=== PATIENT | female | born 1950 | race Caucasian/White ===

== ENCOUNTER 2018-04-23 19:34 | Emergency (ER) | payer MEDICARE, OTHER, SELFPAY ==
--- NOTE | 2018-04-23 19:37 | ED.FALL ---
HPI - Fall <Michelle Quevedo PA-C - Last Filed: 04/23/18 22:08> General Chief Complaint: Fall Stated Complaint: FELL/HIT FACE Time Seen by Provider: 04/23/18 19:37 Source: patient Mode of arrival: ambulatory Limitations: no limitations History of Present Illness HPI Narrative: This 67 year old female slipped on wet pavement about an hour ago and fell onto her hands, knees, and the right side of her face. She denies any LOC or neck pain, and states that she fell forwards. She states that she did get up right away, her knees are a little sore but no difficulty walking. She states that her hands and wrists are somewhat sore but not having difficulty moving them. She has swelling around her right cheek and eye area and bleeding, so came here for evaluation. She states that her vision is normal with her glasses. She is not having any trouble breathing through her nose, opening or closing her mouth. She has no numbness in her face, but feels like the muscles in her right cheek are moving on their own. She states that her tetanus vaccine is up-to-date. Denies any other injury Related Data Previous Rx's Medication Instructions Recorded hydrocodone-acetaminophen [[place]] 1 tab PO Q4-6H PRN #7 tab 04/23/18 Allergies Allergy/AdvReac Type Severity Reaction Status Date / Time belladonna alkaloids Allergy Verified 04/23/18 19:44 Review of Systems <Michelle Quevedo PA-C - Last Filed: 04/23/18 22:08> Review of Systems All systems reviewed & are unremarkable except as noted in HPI and below Exam <Michelle Quevedo PA-C - Last Filed: 04/23/18 22:08> Narrative Exam Narrative: GENERAL APPEARANCE: Patient sitting comfortably, in no distress. HEAD: No scalp abnormality. Marked edema and ecchymoses over the right cheek and maxilla, and ecchymoses of the right periorbital area. Tender over the cheek and orbital bones, no clear palpable deformity EYES: PERRL, EOMI. EARS: Normal auditory canals, TMS intact with normal light reflexes. NOSE: Nares patent ORAL CAVITY: Normal oropharynx. THROAT: Clear. NECK/THYROID: Neck supple, full range of motion LUNGS: Clear to auscultation bilaterally, no cough on exam. HEART: RRR without murmur, nl S1, S2, no S3 or S4. DERMATOLOGIC: There are 2 shallow (1 mm depth) lacerations just lateral to the right brow line, 1 and 1.2 cm in length, no gap in either, not actively bleeding. Facial ecchymoses as described above. There are also ecchymoses on both hands as well as the posterior right forearm MUSCULOSKELETAL: Able to fully open and close the jaw without tenderness. Full range of motion of the hands and wrists bilaterally without point tenderness aside from over the left hand snuffbox. Bank Accountant strength is intact in the hands. Mild tenderness over both knees, full active range of motion bilaterally, able to bear full weight NEUROLOGIC: Patient is alert and oriented with intact speech and coordination [address] [address] XRay Report Signed Patient: Rosa Morales MR#: [id number] : 08/11/2002 Acct:[id number] Age/Sex: 15 / F Date of Service: 04/23/18 Loc: ED Initial Vital Signs Initial Vital Signs: Vital Signs Temperature 98.2 F 04/23/18 19:44 Pulse Rate 98 H 04/23/18 19:44 Respiratory Rate 17 04/23/18 19:44 Blood Pressure 148/100 H 04/23/18 19:44 Pulse Oximetry 98 04/23/18 19:44 <Santiago Neumann DO - Last Filed: 04/23/18 23:24> Initial Vital Signs Initial Vital Signs: Vital Signs Temperature 98.2 F 04/23/18 19:44 Pulse Rate 98 H 04/23/18 19:44 Respiratory Rate 17 04/23/18 19:44 Blood Pressure 148/100 H 04/23/18 19:44 Pulse Oximetry 98 04/23/18 19:44 Course <Michelle Quevedo PA-C - Last Filed: 04/23/18 22:08> Orders Ordered: ED Orders 04/23/18 19:51 CT facial bones wo con Stat XR hand LT min 3V Stat Discontinued Medications Hydrocodone Bitart/Acetaminophen (Vicodin Prepack) 1 bottle MISC SEEINSTR ONE Stop: 04/23/18 21:03 Last Admin: 04/23/18 21:12 Dose: 1 bottle Ibuprofen (Advil) 800 mg PO NOW ONE Stop: 04/23/18 19:52 Last Admin: 04/23/18 19:53 Dose: 800 mg Vital Signs - 8 hr 04/23/18 19:44 04/23/18 20:01 04/23/18 21:13 Temperature 98.2 F 98.2 F Pulse Rate 98 H 98 H 83 Respiratory Rate 17 17 12 Blood Pressure 148/100 H 148/100 H Blood Pressure [Right Arm] 133/88 Pulse Oximetry 98 98 96 <Santiago Neumann DO - Last Filed: 04/23/18 23:24> Orders Ordered: ED Orders 04/23/18 19:51 CT facial bones wo con Stat XR hand LT min 3V Stat Discontinued Medications Hydrocodone Bitart/Acetaminophen (Vicodin Prepack) 1 bottle MISC SEEINSTR ONE Stop: 04/23/18 21:03 Last Admin: 04/23/18 21:12 Dose: 1 bottle Ibuprofen (Advil) 800 mg PO NOW ONE Stop: 04/23/18 19:52 Last Admin: 04/23/18 19:53 Dose: 800 mg Vital Signs - 8 hr 04/23/18 19:44 04/23/18 20:01 04/23/18 21:13 Temperature 98.2 F 98.2 F Pulse Rate 98 H 98 H 83 Respiratory Rate 17 17 12 Blood Pressure 148/100 H 148/100 H Blood Pressure [Right Arm] 133/88 Pulse Oximetry 98 98 96 MDM - Fall <Michelle Quevedo PA-C - Last Filed: 04/23/18 22:08> Imaging Data hand: Radiologist's impression: View Report History [address] [address] XRay Report Signed Patient: Meghan Hough MR#: [id number] : 1950 Acct:[id number] Age/Sex: 67 / F Date of Service: 04/23/18 Loc: ED Accession Number: [id number] Procedure: XR hand LT min 3V Ordering Provider: Michelle Quevedo P.A-C PROCEDURE: XR HAND LT MIN 3V INDICATIONS: fall, snuff box tenderness TECHNIQUE: 3 views of the hand(s) acquired. COMPARISON: None. FINDINGS: Bones: No fractures or dislocations. Carpal bones are normally aligned. No suspicious bony lesions. Diffuse osteopenia. First CMC and triscaphe joint degeneration punctate density projecting in the distal soft tissues of the index finger. Incidental ulnar minus variance. Soft tissues: No suspicious soft tissue calcifications. IMPRESSION: No fracture Dictated by: Sushil Nunez M.D. on 04/23/2018 at 20:29 Approved by: Sushil Nunez M.D. on 04/23/2018 at 20:31 facial bones: Radiologist's impression: View Report History [address] [address] [address] Scan Report Signed Patient: Meghan Hough MR#: [id number] : 1950 Acct:[id number] Age/Sex: 67 / F Date of Service: 04/23/18 Loc: ED Accession Number: [id number] Procedure: CT facial bones wo con Ordering Provider: Michelle Quevedo P.A-C PROCEDURE: CT FACIAL BONES WO CON INDICATIONS: Right. periorbital/maxillary pain, swelling post fall TECHNIQUE: Noncontrast 2.5 mm thick axial images acquired from the mandible through the frontal sinuses, with coronal and sagittal reformatting. For radiation dose reduction, the following was used: automated exposure control, adjustment of mA and/or kV according to patient size. COMPARISON: None. FINDINGS: Image quality: Excellent. Bones and teeth: Plate-screw fixation of the anterior wall left maxillary sinus. Orbital odom are intact. Sinus odom show no fracture or deformity. Nasal bones and septum are intact. Visualized portions of the mandible demonstrate no fractures or subluxation. Zygomatic arches are intact. Pterygoid plates are intact. Visualized portions of the skull base and auditory canals are intact. Severe bilateral temporomandibular joint degeneration. Sinuses: Paranasal sinuses are aerated, without fluid levels, mucosal thickening, or mucoceles. Mastoid air cells are aerated. Soft tissues: No edema, masses, or fluid collections. No enlarged lymph nodes. No soft tissue lacerations or debris. Vascular: Visualized vascular structures appear normal in the absence of contrast. Bony vascular foramina and canals are intact. IMPRESSION: Right pre-malar facial soft tissue swelling. No acute facial fracture Dictated by: Sushil Nunez M.D. on 04/23/2018 at 20:26 Approved by: Sushil Nunez M.D. on 04/23/2018 at 20:29 Discharge Plan Departure Patient Disposition: Home Clinical Impression: Facial contusion, Contusion of multiple sites of hand and fingers, Superficial laceration of face Discharge Date/Time: 04/23/18 21:31 Interventions: ED Discharge Assessment Last Done: 04/23/18 21:31 Instructions: DI for Laceration Repair Steri-Strips, DI for Hand Injury Activity Restrictions/Additional Instructions: Please return as we talked about if you have any new symptoms such as acute vision change, severe headache or vomiting. It is likely to take some time for the swelling in your cheek and the pain and bruising in your hands and wrists to improve. Please continue taking an [id number]-lcj-linidet anti-inflammatory such as ibuprofen or Aleve at least for the next few days and you have some hydrocodone/acetaminophen for tonight and a prescription for a few more to fill tomorrow if needed over the weekend. Please call your PCP tomorrow to arrange for follow-up early next week. Prescriptions: New hydrocodone-acetaminophen [[place]] 5-325 mg tablet 1 tab PO Q4-6H PRN (Reason: acute hand and facial pain from fall) Qty: 7 RF: 0 Referrals: Panchito Villavicencio [Other] <Santiago Neumann DO - Last Filed: 04/23/18 23:24> [facility] Attending Gladys Attestation: I was immediately available in the department for consultation. Documentation has been reviewed. I agree with assessment and plan.
[2018-04-23 19:44] VITALS: BP 148/100; PULSE 98; RESP 17; TEMP 36.8; O2SAT 98; BMI 23.1
--- NOTE | 2018-04-23 19:51 | DI.RAD.S_ITS ---
PROCEDURE: XR HAND LT MIN 3V INDICATIONS: fall, snuff box tenderness TECHNIQUE: 3 views of the hand(s) acquired. COMPARISON: None. FINDINGS: Bones: No fractures or dislocations. Carpal bones are normally aligned. No suspicious bony lesions. Diffuse osteopenia. First CMC and triscaphe joint degeneration punctate density projecting in the distal soft tissues of the index finger. Incidental ulnar minus variance. Soft tissues: No suspicious soft tissue calcifications. IMPRESSION: No fracture Dictated by: Sushil Nunez M.D. on 04/23/2018 at 20:29 Approved by: Sushil Nunez M.D. on 04/23/2018 at 20:31
--- NOTE | 2018-04-23 19:51 | DI.CT.S_ITS ---
PROCEDURE: CT FACIAL BONES WO CON INDICATIONS: Right. periorbital/maxillary pain, swelling post fall TECHNIQUE: Noncontrast 2.5 mm thick axial images acquired from the mandible through the frontal sinuses, with coronal and sagittal reformatting. For radiation dose reduction, the following was used: automated exposure control, adjustment of mA and/or kV according to patient size. COMPARISON: None. FINDINGS: Image quality: Excellent. Bones and teeth: Plate-screw fixation of the anterior wall left maxillary sinus. Orbital odom are intact. Sinus odom show no fracture or deformity. Nasal bones and septum are intact. Visualized portions of the mandible demonstrate no fractures or subluxation. Zygomatic arches are intact. Pterygoid plates are intact. Visualized portions of the skull base and auditory canals are intact. Severe bilateral temporomandibular joint degeneration. Sinuses: Paranasal sinuses are aerated, without fluid levels, mucosal thickening, or mucoceles. Mastoid air cells are aerated. Soft tissues: No edema, masses, or fluid collections. No enlarged lymph nodes. No soft tissue lacerations or debris. Vascular: Visualized vascular structures appear normal in the absence of contrast. Bony vascular foramina and canals are intact. IMPRESSION: Right pre-malar facial soft tissue swelling. No acute facial fracture Dictated by: Sushil Nunez M.D. on 04/23/2018 at 20:26 Approved by: Sushil Nunez M.D. on 04/23/2018 at 20:29
[2018-04-23] MEDS: IBUPROFEN 400 MG TABLET 800 MG PO (19:53)
[2018-04-23 20:01] VITALS: BP 148/100; PULSE 98; RESP 17; TEMP 36.8; O2SAT 98; BMI 23.1
[2018-04-23] MEDS: HYDROCODONE/ACET 5/325 PREPACK 1 BOTTLE MISC (21:12)
[2018-04-23 21:13] VITALS: BP 133/88; PULSE 83; RESP 12; O2SAT 96
== END 2018-04-23 21:31 | disposition home or self-care (01) ==
PROVIDERS: Emergency Provider Internal Medicine
DX: S00.83XA Contusion of other part of head, initial encounter (principal); W19.XXXA Unspecified fall, initial encounter
CPT/HCPCS: 70486; 73130; 99283